=== PATIENT | female | born 2000 | race African-American/Black ===

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

== ENCOUNTER 2021-06-21 16:33 | Emergency (ER) | payer OTHER ==
[~2021-06-21] VITALS: Ht 160 cm; Wt 73.9 kg
[2021-06-21 16:34] VITALS: BP 131/83
== END 2021-06-22 02:48 | disposition left against medical advice (07) ==
LOC: ER 16:33
DX: R51.9 Headache, unspecified (principal); R42 Dizziness and giddiness; H53.8 Other visual disturbances; Z53.21 Procedure and treatment not carried out due to patient leaving prior to being seen by health care provider